=== PATIENT | female | born 1975 | race Caucasian/White ===

== ENCOUNTER 2019-10-01 10:33 | Emergency (ER) | payer OTHER ==
[2019-10-01] MEDS ORDERED: DIAZEPAM 5 MG TABLET ONE (10:54)
[2019-10-01] MEDS ORDERED: MORPHINE 4 MG/ML SYR ONE (10:54)
[2019-10-01] MEDS ORDERED: ONDANSETRON 4 MG (ODT) TAB ONE (10:55)
[2019-10-01] MEDS ORDERED: KETOROLAC 30 MG/ML INJ ONE (10:55)
--- NOTE | 2019-10-01 11:40 | RAD REPORT ---
EXAM DESCRIPTION: RAD - Pelvis - 10/01/2019 11:29 am CLINICAL HISTORY: hip pain COMPARISON: Hip Right 2 View dated 10/01/2019 FINDINGS: Mild arthritic changes are present in both hips. IUD projects over the central pelvis. No fracture, dislocation or AVN is seen.
--- NOTE | 2019-10-01 11:41 | RAD REPORT ---
EXAM DESCRIPTION: RAD - Hip Right 2 View - 10/01/2019 11:29 am CLINICAL HISTORY: right hip pain COMPARISON: No comparisons FINDINGS: Mild osteoarthritis affects the right hip. No fracture, dislocation or AVN.
--- NOTE | 2019-10-01 12:12 | ER ---
Nurse's Notes [facility] Name: James Reese Age: 44 yrs Sex: Female : 1975 Arrival Date: 10/01/2019 Time: 10:34 Bed 15 Private MD: Surendra Brown Diagnosis: Strain of muscle, fascia and tendon of right hip Presentation: 10/01 10:46 Presenting complaint: Patient states: Right hip pain x 4 weeks, pain started to radiate hb to right leg + numbness one week ago. Transition of care: patient was not received from another setting of care. Onset of symptoms was October 01, 2019. Risk Assessment: Do you want to hurt yourself or someone else? Patient reports no desire to harm self or others. Initial Sepsis Screen: Does the patient meet any 2 criteria? No. Patient's initial sepsis screen is negative. Does the patient have a suspected source of infection? No. Patient's initial sepsis screen is negative. Care prior to arrival: None. 10:46 Method Of Arrival: Ambulatory hb 10:46 Acuity: YARELI 4 hb Triage Assessment: 10:50 General: Appears in no apparent distress. uncomfortable, Behavior is calm, cooperative. hb Pain: Pain currently is 10 out of 10 on a pain scale. EENT: No signs and/or symptoms were reported regarding the EENT system. Neuro: Level of Consciousness is awake, alert, obeys commands, Oriented to person, place, time, situation. Cardiovascular: Capillary refill < 3 seconds Patient's skin is warm and dry. Respiratory: Airway is patent Respiratory effort is even, unlabored, Respiratory pattern is regular, symmetrical. GI: No signs and/or symptoms were reported involving the gastrointestinal system. : No signs and/or symptoms were reported regarding the genitourinary system. Derm: Skin is intact, is healthy with good turgor. Musculoskeletal: Circulation, motion, and sensation intact. Reports severe right hip pain that radiates to right leg, right thigh numbness. Historical: - Allergies: 10:48 No Known Allergies; hb - PSHx: 10:48 R ankle; hb - Immunization history:: Adult Immunizations up to date. - Coronavirus screen:: The patient has NOT traveled to [place] in the past 14 days. The patient has NOT had contact with known/suspected case of Coronavirus? Proceed with normal triage procedures. - Social history:: Smoking status: Patient denies any tobacco usage or history of. - Ebola Screening: : No symptoms or risks identified at this time. Screenin:57 Abuse screen: Denies threats or abuse. Denies injuries from another. Nutritional hb screening: No deficits noted. Tuberculosis screening: No symptoms or risk factors identified. Fall Risk None identified. Assessment: 10:57 General: see triage assessment. hb 11:45 Reassessment: Patient appears in no apparent distress at this time. Patient and/or hb family updated on plan of care and expected duration. Pain level reassessed. Patient is alert, oriented x 3, equal unlabored respirations, skin warm/dry/pink. 12:45 Reassessment: Patient appears in no apparent distress at this time. Patient and/or hb family updated on plan of care and expected duration. Pain level reassessed. Patient is alert, oriented x 3, equal unlabored respirations, skin warm/dry/pink. 14:20 Reassessment: Pt discharged and awaiting transportation. Vital Signs: 10:45 BP 189 / 84; Pulse 72; Resp 16; Temp 97.8; Pulse Ox 96% ; Weight 108.86 kg; Height 5 hb ft. 6 in. (167.64 cm); Pain 10/10; 12:00 BP 168 / 78; Pulse 70; Resp 15; Pulse Ox 100% on R/A; Pain 10/10; hb 10:45 Body Mass Index 38.74 (108.86 kg, 167.64 cm) ED Course: 10:34 Patient arrived in ED. as 10:35 Surendra Brown MD is Private Physician. as 10:35 Nahid Montoya PA is PHCP. [facility] 10:35 Zeke Solis MD is Attending Physician. jmm 10:47 Triage completed. hb 10:48 Arm band placed on. hb 10:57 Patient has correct armband on for positive identification. Bed in low position. Call light in reach. Side rails up X 1. 11:02 Sadia Interiano, LACHELLE is Primary Nurse. hb 12:09 Nolan Duncan MD is Referral Physician. jmm 12:30 Inserted saline lock: 22 gauge in left antecubital area, using aseptic technique. iw Administered Medications: 11:03 Drug: Valium 5 mg Route: PO; hb 11:03 Drug: Ketorolac 30 mg Route: IM; Site: left deltoid; hb 11:03 Drug: morphine 4 mg Route: IM; Site: right deltoid; hb 11:03 Drug: Zofran 4 mg Route: PO; hb 12:38 Drug: Dilaudid 1 mg Route: IVP; Site: left antecubital; iw 12:58 Drug: Decadron - Dexamethasone 10 mg Route: IVP; Site: left antecubital; hb Outcome: 12:10 Discharge ordered by MD. castellon 15:02 Patient left the ED. Signatures: Nahid Montoya PA PA jmm Martinez, Amelia as Williams, Irene, RN RN Sadia Interiano RN RN hb Harris, Amy, RN RN
--- NOTE | 2019-10-01 12:12 | EDPHYS ---
Physician Documentation [facility] Name: James Reese Age: 44 yrs Sex: Female : 1975 Arrival Date: 10/01/2019 Time: 10:34 Bed 15 Private MD: Surendra Brown ED Physician Zeke Solis HPI: 10/01 10:45 This 44 yrs old Female presents to ER via Unassigned with complaints of Back jmm Pain. 10:45 The patient or guardian reports pain. Onset: The symptoms/episode began/occurred jmm gradually, 1 month(s) ago. Modifying factors: The symptoms are alleviated by nothing, the symptoms are aggravated by any movement. Associated signs and symptoms: Pertinent positives: numbness. This is a 44 year old female that presents to the ED with complaints of 1 month of right hip pain. Patient states she initially injured herself. Patient states since then she has visited a chiropractor for readjustments and also visited an urgent care. Patient states yesterday she was standing all day long, exacerbating her pain. Patient states the pain begins at her right lateral hip and radiates down the side of her thigh. Patient states pain is numbness alternated with sharp pain. . Historical: - Allergies: 10:48 No Known Allergies; hb - PSHx: 10:48 R ankle; hb - Immunization history:: Adult Immunizations up to date. - Coronavirus screen:: The patient has NOT traveled to [place] in the past 14 days. The patient has NOT had contact with known/suspected case of Coronavirus? Proceed with normal triage procedures. - Social history:: Smoking status: Patient denies any tobacco usage or history of. - Ebola Screening: : No symptoms or risks identified at this time. ROS: 10:45 Constitutional: Negative for fever, chills, and weight loss, Cardiovascular: Negative jmm for chest pain, palpitations, and edema, Respiratory: Negative for shortness of breath, cough, wheezing, and pleuritic chest pain. 10:45 MS/extremity: Positive for injury or acute deformity, pain. 10:45 All other systems are negative. Exam: 10:45 Constitutional: This is a well developed, well nourished patient who is awake, alert, jmm and in no acute distress. Head/Face: atraumatic. Eyes: EOMI, no conjunctival erythema appreciated ENT: Moist Mucus Membranes Neck: Trachea midline, Supple Chest/axilla: Normal chest wall appearance and motion. Cardiovascular: Regular rate and rhythm. No edema appreciated Respiratory: Normal respirations, no respiratory distress appreciated Abdomen/GI: Non distended, soft Back: Normal ROM 10:45 Back: pain, is absent, ROM is normal, vertebral tenderness, is not appreciated. 10:45 Musculoskeletal/extremity: pain is reproduced on flexion of the right hip, compartments are soft, NVI. 10:45 Skin: Appearance: Color: normal in color. 10:45 Neuro: Orientation: is normal, Mentation: is normal, Memory: is normal. 10:45 Psych: Behavior/mood is pleasant, cooperative. Vital Signs: 10:45 BP 189 / 84; Pulse 72; Resp 16; Temp 97.8; Pulse Ox 96% ; Weight 108.86 kg; Height 5 hb ft. 6 in. (167.64 cm); Pain 10/10; 12:00 BP 168 / 78; Pulse 70; Resp 15; Pulse Ox 100% on R/A; Pain 10/10; hb 10:45 Body Mass Index 38.74 (108.86 kg, 167.64 cm) hb MDM: 10:38 Patient medically screened. [facility] 12:08 Data reviewed: vital signs, nurses notes. Counseling: I had a detailed discussion with ravinder the patient and/or guardian regarding: the historical points, exam findings, and any diagnostic results supporting the discharge/admit diagnosis, radiology results, the need for outpatient follow up, to return to the emergency department if symptoms worsen or persist or if there are any questions or concerns that arise at home. ED course: Pain has decreased in the ED. Xrays reveal OA changes. Patient is advised to follow up with ortho for reevaluation. Patient otherwise given strict return precautions. Patient understood and agrees with the plan of care. . 10/01 10:45 Order name: Hip Right 2 View XRAY [facility] 10/01 10:45 Order name: Pelvis XRAY [facility] 10/01 11:54 Order name: RAD; Complete Time: 12:07 EDMS 10/01 11:54 Order name: RAD; Complete Time: 12:07 EDMS Administered Medications: 11:03 Drug: Valium 5 mg Route: PO; hb 11:03 Drug: Ketorolac 30 mg Route: IM; Site: left deltoid; hb 11:03 Drug: morphine 4 mg Route: IM; Site: right deltoid; hb 11:03 Drug: Zofran 4 mg Route: PO; hb 12:38 Drug: Dilaudid 1 mg Route: IVP; Site: left antecubital; iw 12:58 Drug: Decadron - Dexamethasone 10 mg Route: IVP; Site: left antecubital; hb Disposition: 15:20 Co-signature as Attending Physician, Zeke Solis MD I agree with the assessment and kdr plan of care. Disposition: 10/01/19 12:10 Discharged to Home. Impression: Strain of muscle, fascia and tendon of right hip. - Condition is Stable. - Discharge Instructions: Iliotibial Band Syndrome, Hip Pain. - Prescriptions for Valium 5 mg Oral Tablet - take 1 tablet by ORAL route every 8 hours As needed; 20 tablet. - Medication Reconciliation Form, Thank You Letter, Antibiotic Education, Prescription Opioid Use, Work release form form. - Follow up: Nolan Duncan MD; When: 2 - 3 days; Reason: Recheck today's complaints, Continuance of care, Re-evaluation by your physician. Signatures: Dispatcher [employer] EDMS Zeke Solis MD MD [facility] Nahid Montoya PA PA [facility] Suzette Herrmann RN RN Sadia Interiano RN RN Asha Lala RN RN Corrections: (The following items were deleted from the chart) 15:02 12:10 10/01/2019 12:10 Discharged to Home. Impression: Strain of muscle, fascia and ah tendon of right hip. Condition is Stable. Forms are Medication Reconciliation Form, Thank You Letter, Antibiotic Education, Prescription Opioid Use. Follow up: Dr. Nolan Duncan; When: 2 - 3 days; Reason: Recheck today's complaints, Continuance of care, Re-evaluation by your physician. ravinder
[2019-10-01] MEDS ORDERED: HYDROMORPHONE HCL 1 MG/ML INJ ONE (12:35)
[2019-10-01] MEDS ORDERED: dexAMETHasone 4 MG/ML VIAL ONE (12:53)
[2019-10-02 09:17] VITALS: TEMP 97.8
[2019-10-02 09:19] VITALS: BP 168/78; O2SAT 100
== END 2019-10-01 15:02 | disposition home or self-care (01) ==
LOC: ER 10:33
DX: S76.011A Strain of muscle, fascia and tendon of right hip, initial encounter (principal)
CPT/HCPCS: 72170; 73502; 96375; 96372; 96374; 99283; J1170

== ENCOUNTER 2019-10-02 12:18 | Emergency (ER) | payer OTHER ==
[2019-10-02] MEDS ORDERED: HYDROCODONE/APAP 10/325 TAB ONE (13:19)
[2019-10-02] MEDS ORDERED: KETOROLAC 30 MG/ML INJ ONE (13:20)
--- NOTE | 2019-10-02 13:21 | ER ---
Nurse's Notes [facility] Name: James Reese Age: 44 yrs Sex: Female : 1975 Arrival Date: 10/02/2019 Time: 12:20 Bed 10 Private MD: Surendra Brown Diagnosis: Lumbago with sciatica, right side Presentation: 10/02 12:35 Presenting complaint: Patient states: i was here yesterday with my right hip hurting, i tw2 pulled something in my hip a month ago, now it is numb and electrical pain in my thigh. and it hurts to sit, my pain hit a 07/30 getting dressed and taking a shower this morning. Transition of care: patient was not received from another setting of care. Onset of symptoms was October 02, 2019. Risk Assessment: Do you want to hurt yourself or someone else? Patient reports no desire to harm self or others. Initial Sepsis Screen: Does the patient meet any 2 criteria? HR > 90 bpm. No. Patient's initial sepsis screen is negative. Does the patient have a suspected source of infection? No. Patient's initial sepsis screen is negative. Care prior to arrival: None. 12:35 Method Of Arrival: Ambulatory tw2 12:35 Acuity: YARELI 3 tw2 Triage Assessment: 12:38 General: Appears uncomfortable, obese, Behavior is calm, cooperative, appropriate for tw2 age. Pain: Complains of pain in RIGHT hip. 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 tw2 12:37 IUD tw2 Historical: - Allergies: 12:42 oral steroids; tw2 - Home Meds: 12:42 Buspirone 150 Oral [Active]; Nexium 40 mg Oral cpDR 1 cap once daily [Active]; tramadol tw2 50 mg Oral tab 1 tab every 4 hours [Active]; [place] Thyroid Oral [Active]; montelukast 10 mg oral tab 1 tab once daily [Active]; metformin 500 mg Oral tab 1 tab 2 times per day [Active]; triamterene-hydrochlorothiazid 37.5-25 mg Oral cap 1 cap once daily [Active]; metoprolol tartrate 100 mg Oral tab 1 tab once daily [Active]; Lexapro 20 mg Oral tab 1 tab once daily [Active]; Hemocyte-Plus 106 mg iron- 1 mg oral cap 1 cap once daily [Active]; simvastatin 20 mg Oral tab 1 tab once daily [Active]; - PMHx: 12:42 Hypertension; tw2 - PSHx: 12:42 R ankle; lap band; tw2 - Immunization history:: Adult Immunizations. - Coronavirus screen:: The patient has NOT traveled to [place] in the past 14 days. - Social history:: Smoking status: . - Ebola Screening: : Patient denies travel to an Ebola-affected area in the 21 days before illness onset. Screenin:01 Abuse screen: Denies threats or abuse. Nutritional screening: No deficits noted. tw2 Tuberculosis screening: No symptoms or risk factors identified. Fall Risk None identified. Assessment: 13:39 Reassessment: No changes from previously documented assessment. Patient and/or family tw2 updated on plan of care and expected duration. Pain level reassessed. Patient is alert, oriented x 3, equal unlabored respirations, skin warm/dry/pink. Vital Signs: 12:37 BP 153 / 92; Pulse 92; Resp 17; Temp 97.9(TE); Pulse Ox 98% on R/A; Weight 111.58 kg tw2 (R); Height 5 ft. 6 in. (167.64 cm); Pain 8/10; 12:37 Body Mass Index 39.71 (111.58 kg, 167.64 cm) tw2 ED Course: 12:20 Patient arrived in ED. mr 12:20 Surendra Brown MD is Private Physician. mr 12:31 Jo Rivas FNP-C is [facility]. kb 12:31 Wolfgang Nunez MD is Attending Physician. kb 12:33 Bed in low position. Call light in reach. Side rails up X2. Adult w/ patient. tw2 12:37 Triage completed. tw2 12:38 Arm band placed on. tw2 13:14 Oleg Smalls, LACHELLE is Primary Nurse. sg 13:39 No provider procedures requiring assistance completed. Patient did not have IV access tw2 during this emergency room visit. Administered Medications: 13:20 Drug: [place] 10 mg-325 mg 1 tabs Route: PO; sg 13:20 Drug: TORadol 30 mg Route: IM; Site: right ventrogluteal; sg Outcome: 13:19 Discharge ordered by MD. kb 13:39 Discharged to home ambulatory, with family. tw2 13:39 Condition: stable 13:39 Discharge instructions given to patient, family, Instructed on discharge instructions, follow up and referral plans. no drinking with medication, no driving heavy equipment, medication usage, Demonstrated understanding of instructions, follow-up care, medications, Prescriptions given X 1. 13:39 Patient left the ED. tw2 Signatures: Jo Rivas, JW AMOR-Oleg Osborne RN LACHELLE Ragini Naidu Tasha Escobar RN RN tw2
--- NOTE | 2019-10-02 13:21 | EDPHYS ---
Physician Documentation [facility] Name: James Reese Age: 44 yrs Sex: Female : 1975 Arrival Date: 10/02/2019 Time: 12:20 Bed 10 Private MD: Surendra Brown ED Physician Wolfgang Nunez HPI: 10/02 13:08 This 44 yrs old Female presents to ER via Ambulatory with complaints of Hip kb Pain. 13:08 The patient or guardian reports pain. sustained from lifting or pulling, There is no kb obvious deformity, The patient is able to self ambulate. The patient is able to bear their full body weight. The patient's discomfort radiates to the right quadriceps. The complaints affect the right hip. Onset: The symptoms/episode began/occurred 1 month(s) ago. Modifying factors: The symptoms are alleviated by nothing, the symptoms are aggravated by any movement, weight bearing. Associated signs and symptoms: Loss of consciousness: the patient experienced no loss of consciousness, Pertinent positives: None. Severity of symptoms: At their worst the symptoms were moderate, severe, in the emergency department the symptoms are unchanged. The patient has not experienced similar symptoms in the past. The patient has not recently seen a physician. Pt reports she pulled a muscle around her right hip a month ago. Has been seen by her Dr, urgent care, the chiropractor a few times, this ER yesterday and has an appt with DR Pantoja on Saturday. Has been prescribed meloxicam, robaxin, tramadol, and valium with no relief. States "The pain goes away when I lay on my left side with my knees bent, but my left side is getting tired.". 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 tw2 12:37 IUD tw2 Historical: - Allergies: 12:42 oral steroids; tw2 - Home Meds: 12:42 Buspirone 150 Oral [Active]; Nexium 40 mg Oral cpDR 1 cap once daily [Active]; tramadol tw2 50 mg Oral tab 1 tab every 4 hours [Active]; [place] Thyroid Oral [Active]; montelukast 10 mg oral tab 1 tab once daily [Active]; metformin 500 mg Oral tab 1 tab 2 times per day [Active]; triamterene-hydrochlorothiazid 37.5-25 mg Oral cap 1 cap once daily [Active]; metoprolol tartrate 100 mg Oral tab 1 tab once daily [Active]; Lexapro 20 mg Oral tab 1 tab once daily [Active]; Hemocyte-Plus 106 mg iron- 1 mg oral cap 1 cap once daily [Active]; simvastatin 20 mg Oral tab 1 tab once daily [Active]; - PMHx: 12:42 Hypertension; tw2 - PSHx: 12:42 R ankle; lap band; tw2 - Immunization history:: Adult Immunizations. - Coronavirus screen:: The patient has NOT traveled to [place] in the past 14 days. - Social history:: Smoking status: . - Ebola Screening: : Patient denies travel to an Ebola-affected area in the 21 days before illness onset. ROS: 13:08 Constitutional: Negative for fever, chills, and weight loss, Cardiovascular: Negative kb for chest pain, palpitations, and edema, Respiratory: Negative for shortness of breath, cough, wheezing, and pleuritic chest pain, Abdomen/GI: Negative for abdominal pain, nausea, vomiting, diarrhea, and constipation, Back: Negative for injury and pain, Skin: Negative for injury, rash, and discoloration, Neuro: Negative for headache, weakness, numbness, tingling, and seizure. 13:08 MS/extremity: Positive for pain, tingling, of the right hip and right quadriceps. Exam: 13:08 Constitutional: This is a well developed, well nourished patient who is awake, alert, kb and in no acute distress. Head/Face: Normocephalic, atraumatic. Neck: Trachea midline, no thyromegaly or masses palpated, and no cervical lymphadenopathy. Supple, full range of motion without nuchal rigidity, or vertebral point tenderness. No Meningismus. Chest/axilla: Normal chest wall appearance and motion. Nontender with no deformity. No lesions are appreciated. Cardiovascular: Regular rate and rhythm with a normal S1 and S2. No gallops, murmurs, or rubs. Normal PMI, no JVD. No pulse deficits. Respiratory: Lungs have equal breath sounds bilaterally, clear to auscultation and percussion. No rales, rhonchi or wheezes noted. No increased work of breathing, no retractions or nasal flaring. Abdomen/GI: Soft, non-tender, with normal bowel sounds. No distension or tympany. No guarding or rebound. No evidence of tenderness throughout. Skin: Warm, dry with normal turgor. Normal color with no rashes, no lesions, and no evidence of cellulitis. MS/ Extremity: Pulses equal, no cyanosis. Neurovascular intact. Full, normal range of motion. Neuro: Awake and alert, GCS 15, oriented to person, place, time, and situation. Cranial nerves II-XII grossly intact. Motor strength 5/5 in all extremities. Sensory grossly intact. Cerebellar exam normal. Normal gait. 13:08 Back: pain, that is moderate, of the left low back, ROM is painful, normal spinal alignment noted, vertebral tenderness, is not appreciated, Straight leg raises: right lower extremity illicits pain, at 60 degrees. Vital Signs: 12:37 BP 153 / 92; Pulse 92; Resp 17; Temp 97.9(TE); Pulse Ox 98% on R/A; Weight 111.58 kg tw2 (R); Height 5 ft. 6 in. (167.64 cm); Pain 8/10; 12:37 Body Mass Index 39.71 (111.58 kg, 167.64 cm) tw2 MDM: 12:34 Patient medically screened. renee 13:16 Differential diagnosis: hip fracture, arthritis, strain. Data reviewed: vital signs, kb nurses notes, old medical records, hip x-ray negative yesterday. Data interpreted: Pulse oximetry: on room air is 98 %. Interpretation: normal. Counseling: I had a detailed discussion with the patient and/or guardian regarding: the historical points, exam findings, and any diagnostic results supporting the discharge/admit diagnosis, the need for outpatient follow up, a orthopedic surgeon, to return to the emergency department if symptoms worsen or persist or if there are any questions or concerns that arise at home. ED course: Pt educated to follow up with [facility] as planned. Educated to continue medications as prescribed. Will prescribe gabapentin to trial for pain relief. Pt unable to take oral steroids due to previous lap band and has tried antiinflammatories without relief. . Administered Medications: 13:20 Drug: [place] 10 mg-325 mg 1 tabs Route: PO; sg 13:20 Drug: TORadol 30 mg Route: IM; Site: right ventrogluteal; sg Disposition: 13:48 Co-signature as Attending Physician, Wolfgang Nunez MD I agree with the assessment and renee plan of care. Disposition: 10/02/19 13:19 Discharged to Home. Impression: Lumbago with sciatica, right side. - Condition is Stable. - Discharge Instructions: Sciatica, [id number], Back Exercises, [id number]. - Prescriptions for Neurontin 300 mg Oral Capsule - take 1 capsule by ORAL route At bedtime As needed; 10 capsule. - Medication Reconciliation Form, Thank You Letter, Antibiotic Education, Prescription Opioid Use, Work release form form. - Follow up: Emergency Department; When: As needed; Reason: Worsening of condition. Follow up: Private Physician; When: 2 - 3 days; Reason: Recheck today's complaints, Continuance of care, Re-evaluation by your physician. Signatures: Jo Rivas, PRODUCE PRODUCTION TEAM MEMBER-C PRODUCE PRODUCTION TEAM MEMBER-Ckb Oleg Smalls, RN Wolfgang Wood MD MD cha Wise, Tara RN RN tw2 Corrections: (The following items were deleted from the chart) 13:39 13:19 10/02/2019 13:19 Discharged to Home. Impression: Lumbago with sciatica, right tw2 side. Condition is Stable. Forms are Work release form, Medication Reconciliation Form, Thank You Letter, Antibiotic Education, Prescription Opioid Use. Follow up: Emergency Department; When: As needed; Reason: Worsening of condition. Follow up: Private Physician; When: 2 - 3 days; Reason: Recheck today's complaints, Continuance of care, Re-evaluation by your physician. kb
[2019-10-02 20:51] VITALS: BP 153/92; TEMP 97.9; O2SAT 98
== END 2019-10-02 13:39 | disposition home or self-care (01) ==
LOC: ER 12:18
DX: M54.41 Lumbago with sciatica, right side (principal); I10 Essential (primary) hypertension
CPT/HCPCS: 96372; 99283